=== PATIENT | female | born 1940 | race Caucasian/White ===

== ENCOUNTER 2016-08-27 13:11 | Inpatient (IN) ==
--- NOTE | 2016-08-27 15:06 | Diag Imaging Result Doc PS360 ---
EXAM: CHEST-2 VIEWS HISTORY: afib rvr TECHNIQUE: PA and lateral chest COMMENT: There is apical pleural scarring bilaterally. There is also apparent pleural thickening anteriorly over the lower chest. The heart size and pulmonary vascularity are within normal limits. There is no evidence of acute pulmonary disease. There are no previous studies. IMPRESSION: Pleural scarring. No evidence of acute disease. Electronically signed by Uri Maldonado 08/27/2016 3:04 PM
[2016-08-27 15:14] LABS: MANUAL DIFF NEEDED? NO
[2016-08-27 15:27] LABS: BASO% 0.6 % (0.0-0.8); EOS% 1.2 % (0.0-10.0); HEMATOCRIT 42.7 % (37.0-47.0); LYMPH# 1.93 X1000 (1.2-3.4); LYMPH% 24.1 % (20.5-51.1); MCHC 32.8 g/dL (33-37); MCV 94.5 FL (81-99); MONO# 0.76 X1000 (0.11-0.59); MONO% 9.5 % (1.7-9.3); NEUT% 64.6 % (42.2-75.2); PLT 219 X1000 (130-400); RBC 4.52 XMIL (4.2-5.4)
[2016-08-27] MEDS: CARDIZEM 100 MG/NS 100 MG/100 ML IVPB IV SCH (15:33)
[2016-08-27] MEDS: LANOXIN IV SCH ×3 (15:34→22:32)
[2016-08-27] MEDS: LOPRESSOR PO SCH ×2 (15:34→22:04)
[2016-08-27] MEDS: LOVENOX SUBQ SCH (15:34)
[2016-08-27 15:45] LABS: AGAP 15; ALBUMIN 3.9 g/dL (3.5-5.0); ALKALINE PHOSPHATASE 61 U/L (32-104); BUN 15 mg/dL (8-22); CALCIUM 9.5 mg/dL (8.8-10.2); CHLORIDE 103 mmol/L (98-107); COSMO 282; GOT 18 U/L (10-30); GPT 13 U/L (10-36); SODIUM 141 mmol/L (136-145); TCO2 23 mmol/L (25-35); TOTAL PROTEIN 7.4 g/dL (6.3-8.3)
[2016-08-27 15:57] LABS: FREE T4 1.6 ng/dL (0.93-1.70)
[2016-08-27 16:34] LABS: SED RATE 12 mm/hr (0-20)
[2016-08-27 16:47] LABS: URINE MICRO REVIEW NEEDED? NO; URINE SOURCE VOIDED
[2016-08-27 17:20] LABS: BILIRUBIN URINE NEGATIVE (NEGATIVE); BLOOD URINE NEGATIVE (NEGATIVE); COLOR YELLOW; GLUCOSE URINE NEGATIVE (NEGATIVE); LEUKOCYTES URINE NEGATIVE (NEGATIVE); NITRITE URINE NEGATIVE (NEGATIVE); PROTEIN URINE NEGATIVE (NEGATIVE); SP GRAVITY URINE 1.014; TURBIDITY URINE CLEAR (CLEAR); UROBILINOGEN URINE NORMAL (NORMAL)
[2016-08-27 17:22] LABS: UR EPITHELIAL CELLS <10 /HPF (<10); URINE BACTERIA NEGATIVE /HPF; URINE RBC <10 /HPF (<10); URINE WBC <10 /HPF (<10)
[2016-08-28] MEDS: CARDIZEM 100 MG/NS 100 MG/100 ML IVPB IV SCH ×2 (00:08→16:01)
[2016-08-28] MEDS: LANOXIN IV SCH (03:28)
[2016-08-28] MEDS ORDERED: LANOXIN IV ONE ×2 (04:30→22:15)
[2016-08-28 05:16] LABS: HEMOGLOBIN A1C 5.6 % (4.8-6.0)
[2016-08-28] MEDS: LOPRESSOR PO SCH ×3 (05:26→21:19)
[2016-08-28] MEDS: LOVENOX SUBQ SCH ×2 (05:27→16:01)
--- NOTE | 2016-08-28 06:19 | EKG Report ---
Test Performed on : 08/28/2016 05:51:19 AM Test Reason : afib rvr Blood Pressure : / mmHG Vent. Rate : 089 BPM Atrial Rate : 080 BPM P-R Int : 000 ms QRS Dur : 088 ms QT Int : 364 ms P-R-T Axes : 000 074 268 degrees QTc Int : [address] \T\ T wave abnormality, consider lateral ischemia Abnormal ECG When compared with ECG of 15-FEB-2009 18:23, Atrial fibrillation. has replaced Sinus rhythm. Nonspecific T wave abnormality, worse in Inferior leads T wave inversion now evident in Lateral leads Confirmed by Barney LEY, Ayo Melton ([id number]) on 08/28/2016 8:42:44 AM
[2016-08-28] MEDS ORDERED: ANESTHESIA PB SET 88 IN 5742 ONE (08:53)
[2016-08-28] MEDS ORDERED: SODIUM CHLORIDE 0.9% 10 ML ONE (08:53)
[2016-08-28] MEDS ORDERED: XYLOCAINE 2% VISCOUS ONE (08:53)
[2016-08-28] MEDS ORDERED: NS 1,000 ML ONE (08:53)
[2016-08-28] MEDS ORDERED: XYLOCAINE 4% TOPICAL SOLUTION ONE (08:53)
[2016-08-28] MEDS ORDERED: DEMEROL ONE ×2 (08:54→09:21)
[2016-08-28] MEDS ORDERED: VERSED ONE (08:54)
[2016-08-28] MEDS ORDERED: NARCAN ONE (09:24)
[2016-08-28] MEDS ORDERED: ROMAZICON ONE (09:24)
--- NOTE | 2016-08-28 10:11 | CARDIAC CATH REPORT ---
DATE: 08/28/2016 PROCEDURE PERFORMED: Direct current cardioversion procedure. INDICATION: Persistent atrial fibrillation, intolerance to medications. DESCRIPTION: The patient was brought to the cardiac labeling specialist. She had been given Lovenox. She was on IV Cardizem. She had also been taking low-dose digoxin and metoprolol. The patient underwent a transesophageal echocardiogram that showed no evidence of thrombus. She was deemed to be safe for cardioversion. The patient was given an extra 1 mg of versed and an extra 25 mg of Demerol for this procedure. She had already received 3 mg of versed and 75 mg of Demerol for the REBECCA procedure. The pads were positioned in an anterior-posterior location. A single synchronized countershock to the chest cage was delivered with the energy of 120 cabrera per second. The patient converted from atrial fibrillation into sinus rhythm. PACs were noted subsequently and occasional runs of atrial tachycardia. The patient woke up from the effects of the anesthesia without deficits. SUMMARY: In summary, this was a successful cardioversion from atrial fibrillation into sinus rhythm. RECOMMENDATIONS: We will treat the patient with long-term anticoagulation, possibly beta-sam with a low-dose calcium sam. The patient is to pursue further testing including myocardial perfusion stress imaging to exclude coronary heart disease. cc: Celos Rojas MD
--- NOTE | 2016-08-28 10:14 | ECHO REPORT ---
ORDER DATE: 08/28/2016 PHYSICIAN: Dr. Rojas REQUESTING PHYSICIAN: CLINICAL INDICATIONS: The patient is with persistent atrial fibrillation of unknown duration. Cardioversion has been recommended. PROCEDURE: Transesophageal echocardiography DESCRIPTION: The patient came into the cardiac labor economics professor in a fasting state. The throat was anesthetized with viscous lidocaine and Hurricaine. She received 3 doses of Demerol 25 mg each one and 3 doses of Versed 1 mg each one for sedation. The esophagus was intubated without difficulty. Multiple views of the cardiac structure were obtained. SUMMARY OF MAIN FINDINGS: The left atrium appears to be mildly enlarged. The left atrial appendage is small and is convoluted. No evidence of thrombus is noted. The flow velocities within the appendage are in the order of 40 to 50 cm per second. No spontaneous echocontrast is noted. The interatrial septum is intact. There is no evidence of shunt. Right atrium appears to be mildly enlarged. The tricuspid valve is normal. Color flow mapping is unremarkable. Right ventricle is normal. Aortic valve is normal and has 3 cusps. Color flow mapping indicates trivial degree of regurgitation. Pulmonic valve is normal. Color flow mapping is unremarkable. Mitral valve shows a very mild degree of regurgitation. The left ventricle shows mildly decreased contractility. Ejection fraction estimated at 45%. There is hypokinesis of the interventricular septum. There is also some hypokinesis of the posterior wall. No pericardial effusion is noted. The global ejection fraction appears to be in the order of 45%. Descending thoracic aorta shows mild degree of diffuse plaque. No mobile debris or ulcerated plaque is noted. CONCLUSIONS: This transesophageal echocardiogram shows no evidence of thrombus. The patient may proceed with direct current cardioversion at a reasonable risk. cc: Celso Rojas MD
[2016-08-28] MEDS: NS 1,000 ML IV SCH ×3 (11:42→21:20)
--- NOTE | 2016-08-28 12:17 | EKG Report ---
Test Performed on : 08/28/2016 11:15:50 AM Test Reason : Post REBECCA/CVN Blood Pressure : / mmHG Vent. Rate : 068 BPM Atrial Rate : 068 BPM P-R Int : 160 ms QRS Dur : 090 ms QT Int : 420 ms P-R-T Axes : 081 069 232 degrees QTc Int : 446 ms Normal sinus rhythm. Possible Left atrial enlargement T wave abnormality, consider anterolateral ischemia Abnormal ECG When compared with ECG of 28-AUG-2016 05:51, Sinus rhythm. has replaced Atrial fibrillation. Confirmed by Barney LEY, Ayo Melton ([id number]) on 08/31/2016 9:09:50 AM
--- NOTE | 2016-08-28 16:08 | ECHO REPORT ---
ORDER DATE: 08/27/2016 LIMITED ECHOCARDIOGRAPHY: MEASUREMENTS: Left ventricular end-diastolic diameter 4.5. End systolic 3.8. Septal wall thickness 0.9. Posterior wall thickness 0.9. SUMMARY: 1. Fair quality acoustic windows. 2. Aortic mitral and tricuspid valves are without structural abnormality. Pulmonic valve not well demonstrated. Doppler not performed. 3. Normal left ventricular dimensions suggested on 2-dimensional images. Assessment of left ventricular systolic function is challenging given the fact that the patient is in atrial fibrillation with rapid ventricular rate during the study. Left ventricular ejection fraction appears to be approximately 30%-35% in the setting of global hypokinesis. Left atrium appears mildly enlarged. Right atrium right ventricle are of normal size with grossly preserved right ventricular systolic force. 4. No pericardial effusion. 5. Inferior vena cava not seen. 6. Atrial fibrillation with rapid ventricular rate during study. cc: MD Celso Garland MD
[2016-08-29] MEDS ORDERED: LANOXIN IV ONE ×2 (04:30→22:15)
[2016-08-29] MEDS: LOVENOX SUBQ SCH ×2 (04:41→15:38)
--- NOTE | 2016-08-29 05:36 | EKG Report ---
Test Performed on : 08/28/2016 9:45:55 PM Test Reason : change of rhythm Blood Pressure : / mmHG Vent. Rate : 103 BPM Atrial Rate : 129 BPM P-R Int : 000 ms QRS Dur : 082 ms QT Int : 368 ms P-R-T Axes : 000 067 -86 degrees QTc Int : 482 ms Atrial fibrillation. with rapid ventricular response. with premature ventricular or aberrantly condu cted complexes. Nonspecific ST and T wave abnormality Abnormal ECG When compared with ECG of 28-AUG-2016 11:15, (Unconfirmed) Atrial fibrillation. has replaced Sinus rhythm. Vent. rate has increased BY 35 BPM Confirmed by Barney LEY, Ayo Melton ([id number]) on 08/31/2016 9:10:36 AM
[2016-08-29] MEDS: NS 1,000 ML IV SCH ×3 (06:06→20:42)
[2016-08-29] MEDS: LOPRESSOR PO SCH ×3 (06:06→20:42)
--- NOTE | 2016-08-29 07:05 | EKG Report ---
Test Performed on : 08/29/2016 06:38:58 AM Test Reason : abnormal echocardiogram/suspect CAD Blood Pressure : / mmHG Vent. Rate : 094 BPM Atrial Rate : 277 BPM P-R Int : 000 ms QRS Dur : 088 ms QT Int : 372 ms P-R-T Axes : 000 068 -79 degrees QTc Int : 465 ms Atrial fibrillation. Cannot rule out Anterior infarct , age undetermined Abnormal ECG When compared with ECG of 28-AUG-2016 21:45, (Unconfirmed) No significant change was found Confirmed by Barney LEY, Ayo Melton ([id number]) on 08/31/2016 9:11:25 AM
[2016-08-29] MEDS: CARDIZEM 100 MG/NS 100 MG/100 ML IVPB IV SCH (07:20)
[2016-08-29] MEDS ORDERED: LEXISCAN ONE (08:49)
[2016-08-29] MEDS ORDERED: CARDIZEM 100 MG/NS 100 MG/100 ML IVPB IV SCH (14:58)
[2016-08-29] MEDS: CORDARONE PO SCH ×2 (15:38→20:42)
--- NOTE | 2016-08-29 18:02 | PROGRESS NOTE ---
DATE: 08/29/2016 CHIEF COMPLAINT: Irregular heartbeat, palpitations. SUBJECTIVE: Ms. Conway has not had any significant change in symptoms. Overnight, unfortunately, she converted back into atrial fibrillation with a rapid response. We had to put her back on the diltiazem drip at higher doses and she also received two doses of digoxin. OBJECTIVE: Vital signs: Blood pressure today is 125/66, pulse 107, temperature 98.1, respirations 20. General: She is awake, alert, oriented, in no distress. HEENT: Unremarkable. Chest: Clear to auscultation and percussion. Cardiac: Heart sounds irregularly irregular. No gallop or murmur. Abdomen: Nontender. Soft. Extremities: Show no edema. Neurologic: Moves four extremities. LABORATORY DATA: Of note, lipid panel from August 27 shows cholesterol 147, LDL 106, HDL 52, triglycerides 63. IMPRESSION: 1. Patient with paroxysmal atrial fibrillation. Unfortunately she has converted back to atrial fibrillation after we did a REBECCA cardioversion on August 28. 2. Abnormal echocardiogram suggesting wall motion abnormality at the level of the posterior wall. Today we have performed a Lexiscan myocardial perfusion stress test that reveals normal perfusion of the myocardium. At this point in time my suspicion or concern for coronary heart disease is low. RECOMMENDATIONS: At this point in time we will initiate amiodarone 400 mg 3 times a day. If her heart rate is well controlled, I may let her go home tomorrow and at that time we will prescribe Xarelto and low-dose metoprolol for her. I will arrange for a 30-day MAYA monitor and we will plan on doing a cardioversion electively in a month from now after we time to load her up with the amiodarone. At this point in time the patient is stable. We will see how she is doing in the morning and we will try to wean off the Cardizem tonight. cc: Celso Rojas MD
--- NOTE | 2016-08-29 18:31 | Diag Imaging Result Document ---
PROCEDURE NAME: MYOCARDIAL PERF SCAN, STR/REST - 08/29/2016 STUDY: Rest-stress Lexiscan myocardial perfusion imaging study. INDICATION: Abnormal EKG, atrial fibrillation, abnormal echo. DESCRIPTION: The patient came into the Nuclear Lab, received a rest injection of technetium 99 sestamibi 12.8 millicuries. Multiple tomographic views of the cardiac structure were obtained at rest. Subsequently the patient underwent infusion of Lexiscan 0.4 mg per protocol. At peak infusion, injected with technetium 99 sestamibi 36.6 millicuries. Multiple tomographic views of the cardiac structure were obtained following the completion of the protocol. SUMMARY OF ELECTROCARDIOGRAPHIC PORTION OF STUDY: The resting electrocardiogram shows atrial fibrillation. Rate is controlled at 93 beats per minute with diffuse ST-T abnormality. Resting blood pressure 136/73. During infusion of Lexiscan, the heart rate increased to a maximum of 131 beats per minute which represents 89% of maximum predicted heart rate for her age. Blood pressure went up to 146/85. The patient reported no chest pain, shortness of breath, or palpitations. The ECG showed some exaggeration of the baseline abnormality. Following the completion of infusion, the heart rate and blood pressure returned back to baseline. IMPRESSION: In summary, the electrocardiographic response to infusion of Lexiscan is deemed to be nonspecific. SUMMARY OF MYOCARDIAL PERFUSION PORTION OF STUDY: Poststress tomographic views of the left ventricle showed a focal, mild in severity, apical anterior defect. The rest images showed basically the same type of defect. That is consistent with apical thinning. The polar plots revealed the same. There is a very trivial mild focal apical anterior defect. This is probably consistent with breast attenuation artifact or apical thinning. Gated SPECT shows a well preserved ejection fraction, 72%, with normal ventricular volumes. No wall motion abnormality. Lung-heart ratio is borderline elevated. TID is normal. IMPRESSION: In summary, this study shows: 1. Unremarkable electrocardiographic response to infusion of Lexiscan. The patient had an abnormal resting ECG which makes this response nonspecific. 2. Probably normal poststress myocardial perfusion scan. There is no scintigraphic evidence of pharmacologically induced myocardial ischemia. The focal apical defect noted in the apical anterior wall probably represents breast attenuation artifact versus apical thinning. 3. Normal left ventricular systolic function. Ejection fraction 72% with normal ventricular volumes. No wall motion abnormality. This study would represent low risk for ischemic events. cc: Celso Rojas MD
[2016-08-30] MEDS: LOPRESSOR PO SCH ×2 (04:02→12:39)
[2016-08-30] MEDS: NS 1,000 ML IV SCH ×2 (04:03→12:33)
[2016-08-30] MEDS: LOVENOX SUBQ SCH (04:49)
[2016-08-30 05:14] LABS: MANUAL DIFF NEEDED? NO
[2016-08-30 05:19] LABS: BASO% 1.1 % (0.0-0.8); EOS# 0.14 X1000 (0.0-0.7); HEMATOCRIT 39.8 % (37.0-47.0); LYMPH# 1.55 X1000 (1.2-3.4); LYMPH% 33.6 % (20.5-51.1); MCH 31.2 PG (27-31); MCHC 32.7 g/dL (33-37); MCV 95.4 FL (81-99); MONO# 0.43 X1000 (0.11-0.59); MONO% 9.3 % (1.7-9.3); MPV 11.2 FL (7.4-10.4); PLT 170 X1000 (130-400); RBC 4.17 XMIL (4.2-5.4)
[2016-08-30 05:35] LABS: AGAP 13; BUN 5 mg/dL (8-22); CALCIUM 8.7 mg/dL (8.8-10.2); CHLORIDE 107 mmol/L (98-107); COSMO 284; MAGNESIUM 1.8 mg/dL (1.5-2.7); POTASSIUM 3.8 mmol/L (3.5-5.1); SODIUM 144 mmol/L (136-145); TCO2 24 mmol/L (25-35)
--- NOTE | 2016-08-30 06:57 | EKG Report ---
Test Performed on : 08/30/2016 06:20:43 AM Test Reason : atrial fibrillation Blood Pressure : / mmHG Vent. Rate : 087 BPM Atrial Rate : 066 BPM P-R Int : 000 ms QRS Dur : 088 ms QT Int : 408 ms P-R-T Axes : 000 067 -63 degrees QTc Int : 490 ms Atrial fibrillation. Nonspecific ST and T wave abnormality Prolonged QT Abnormal ECG When compared with ECG of 29-AUG-2016 06:38, (Unconfirmed) Nonspecific T wave abnormality, improved in Lateral leads Confirmed by Barney LEY, Ayo Melton ([id number]) on 08/31/2016 9:13:39 AM
[2016-08-30] MEDS: CORDARONE PO SCH ×2 (08:37→12:39)
[2016-08-30 12:13] VITALS: BP 141/76
[2016-08-30] MEDS ORDERED: XARELTO PO SCH (17:00)
--- NOTE | 2016-08-30 19:54 | DISCHARGE SUMMARY ---
ADMISSION DATE: 08/27/2016 DISCHARGE DATE: 08/30/2016 CHIEF COMPLAINT: Irregular heartbeat, shortness of breath. HISTORY: Ms. Conway presented to my office on August 27 as a consultation, referred by Dr. Murali Webster. The patient had been feeling short of breath. She had noted an irregular and rapid heartbeat. At the time of presentation at the office, I noted that she was in atrial fibrillation with a very rapid ventricular response. The patient was not really hemodynamically stable and I recommended admission to the hospital. HOSPITAL COURSE: The patient was admitted to the hospital, was initiated on intravenous Cardizem. She was given some doses of digoxin and she was put on anticoagulation with Lovenox. I also put her on a low dose of metoprolol. The patient was recommended to pursue electrical cardioversion under REBECCA guidance. This procedure was arranged for August 28. We performed the REBECCA that showed no evidence of thrombus. Her left atrial appendage was anatomically small, however, it was convoluted. It was free of thrombus. Cardioversion was carried out with a single shock to the chest cage and she converted to sinus rhythm with some PACs. Unfortunately, late that night she flipped back into atrial fibrillation again with rapid response. We had to resume the Cardizem and then, because of wall motion abnormality that appeared to be present on the transthoracic echocardiogram, I recommended a nuclear stress test to exclude severe coronary heart disease as a possible race car driver of this patient's arrhythmia. The nuclear stress test was done on August 29. It showed no evidence of inducible ischemia with an abnormal resting ECG with unremarkable response to the Lexiscan protocol. I decided to initiate the patient on amiodarone and she was placed on amiodarone 400 mg 3 times a day. The patient's heart rate by August 30 appeared to be better controlled. I felt that she could probably be discharged with instructions to continue treatment and follow up in my office. The plan at this time would be to load her with amiodarone for at least a month and then attempt cardioversion one more time. She will be getting Xarelto as an anticoagulant for stroke prevention. DISCHARGE INSTRUCTIONS: The patient will be discharged home today with the following instructions: 1. Take amiodarone 400 mg twice a day for 2 weeks, then decrease to 200 mg twice a day for another week, and then finally go down to 200 mg once a day. 2. Take metoprolol tartrate 25 mg twice daily. 3. Take Xarelto 20 mg daily. 4. Will receive 30-day MAYA for monitoring. 5. Will follow up with me at the clinic in 2-3 weeks to reassess condition. 6. She will call me any time should she notice any deterioration of her symptoms. FINAL DIAGNOSES: 1. Atrial fibrillation, paroxysmal, with rapid ventricular response. 2. Shortness of breath secondary to arrhythmia. PROCEDURES PERFORMED DURING THIS ADMISSION: 1. Transthoracic echocardiogram. 2. Transesophageal echocardiogram. 3. Lexiscan myocardial perfusion stress test. 4. Direct current cardioversion. DISPOSITION: The patient is leaving the hospital in improved condition. Her prognosis is probably fair given the negative results of the stress test and the normal ejection fraction on the nuclear stress test. We will follow her at the office. Further advice will be forthcoming. Thank you again for the opportunity to participate in her evaluation. cc: MD Murali Schmid MD MTDD
== END 2016-08-30 13:05 | disposition home or self-care (01) ==
LOC: DIRADM 13:11 → 3S 13:51
PROVIDERS: ADMIT Internal Medicine Cardiovascular Disease; ATTEND Internal Medicine Cardiovascular Disease